=== PATIENT | female | born 1965 | race Caucasian/White ===

== ENCOUNTER 2018-03-24 11:33 | Inpatient (IN) | payer MEDICAID, OTHER, SELFPAY ==
[2018-03-24 15:01] LABS: Absolute Lymphocytes (CBC) 2.4 K/uL (0.7-4.9); Absolute Monocytes 0.9 K/uL (0.1-1.3); Absolute Neutrophil 7.2 K/uL (1.8-8.0); Basophils % 0.6 % (0-1.3); Eosinophils % 3.7 % (0-4.4); Hematocrit 38.8 % (36.0-45.0); Lymphocytes % 21.6 % (15.3-44.8); MCH 29.8 pg (27.0-35.0); MCV 87.7 fL (80-100); MPV 9.7 fL (7.6-11.3); RBC Red Blood Cell Count 4.43 M/uL (3.86-4.86)
[2018-03-24] MEDS ORDERED: Levofloxacin 750mg IV 750 MG/150 ML BAG IV ONE (15:05)
[2018-03-24] MEDS ORDERED: FENTANYL CITR 100 MCG/2 ML ONE (15:05)
[2018-03-24] MEDS ORDERED: NA CHLORIDE 0.9% 1,000 ML ONE (15:05)
[2018-03-24] MEDS ORDERED: METRONIDAZOLE 500mg IVPB 500 MG/100 ML BAG IV ONE (15:05)
[2018-03-24 15:07] LABS: Protime INR 1.07
[2018-03-24] MEDS ORDERED: ONDANSETRON 4 MG/2 ML VIAL ONE ×2 (15:07→16:44)
[2018-03-24 15:14] LABS: Potassium 3.6 mEq/L (3.6-5.0)
--- NOTE | 2018-03-24 15:19 | RAD REPORT ---
EXAM DESCRIPTION: RAD - Chest Single View - 03/24/2018 3:08 pm CLINICAL HISTORY: Chest pain. COMPARISON: 11/24/2017. FINDINGS: Portable technique limits examination quality. The lungs are grossly clear. The heart is normal in size. No displaced fractures. IMPRESSION: No acute intrathoracic process suspected.
[2018-03-24 15:20] LABS: Albumin 3.8 g/dL (3.2-5.5); Bilirubin Direct 0.1 mg/dL (0-0.2); Bilirubin Total 0.7 mg/dL (0.3-1.2); Magnesium 1.8 mg/dL (1.8-2.5); Protein, Total 7.7 g/dL (6.0-8.3)
[2018-03-24 15:23] LABS: CKMB Creatine Kinase MB 1.5 ng/ml (0.3-4.0)
[2018-03-24 16:08] LABS: Urine Blood NEGATIVE (NEG); Urine Glucose NEGATIVE (NEG); Urine Protein NEGATIVE (NEG); Urine pH 6.5 (5.0-7.0)
--- NOTE | 2018-03-24 16:54 | RAD REPORT ---
EXAM DESCRIPTION: CT - Abdomen Pelvis Wo Contrast - 03/24/2018 4:37 pm CLINICAL HISTORY: Groin pain, abdominal pain; patient history of "3 knots" in her genitals they hurt so badly and are oozing yellow drainage radiates up the abdomen COMPARISON: CT study March 2014 TECHNIQUE: Axial [address] imaging of the abdomen and pelvis was performed without IV contrast. No IV contrast was given because of allergy, abnormal renal function, patient refusal or physician re quest. Oral contrast was given. All CT scans are performed using dose optimization technique as appropriate and may include automated exposure control or mA/KV adjustment according to patient size. FINDINGS: No suspicious findings in the lung bases. The liver, spleen and pancreas show no suspicious findings on non-contrast imaging. Cholecystectomy c lips are present. No biliary tree dilatation. No hydronephrosis or suspicious renal mass. No significant adrenal finding. Isodense renal masses an d pyelonephritis cannot be excluded in the absence of IV contrast. Partially filled urinary bladder s hows no suspicious finding. Uterus is absent. Ovaries are unremarkable. No gastric dilatation or gastric wall thickening. Oral contrast has reached the distal small bowel. N o appendicitis findings. From cecum through the descending colon there is no acute finding. In the mi dportion of the tortuous sigmoid colon there is a 4 centimeter segment of wall thickening with edema and inflammatory stranding in the adjacent fat. Patient has a mild diverticulosis pattern of the sigm oid colon. No abscess. No distant free air. Punctate air densities adjacent to the colon are probably within diverticulum. No free air, free fluid or pneumatosis. No other area of peritoneal or retroper itoneal inflammatory stranding. No hernia, mass or bulky lymphadenopathy. In the fatty tissues left-side mons pubis there is edema and stranding just below the skin surface. N o air in the soft tissues. No inflammatory stranding into the perineum or extending superiorly into t he pelvic floor. There are few nonspecific bilateral inguinal lymph nodes. No suspicious bony findings. IMPRESSION: Mild acute sigmoid diverticulitis. No abscess or other complication. Mild inflammatory changes are present in the fatty tissues left-side mons pubis. No abscess or air in the soft tissues. There is no posterior extension into the perineum and no extension superiorly into the groin or pelvic floor. Full assessment is limited is the absence of IV contrast.
--- NOTE | 2018-03-24 17:11 | EDPHYS ---
Physician Documentation [facility] Name: Sonia Miller Age: 52 yrs Sex: Female : 1965 Arrival Date: 03/24/2018 Time: 11:34 Bed 27 Private MD: Mike Blackburn HPI: 03/24 14:15 This 52 yrs old Female presents to ER via Wheelchair with complaints of jose Abdominal Pain, KNOTS IN VAGINAL AREA. 14:15 The patient presents with an abscess of the left labia majora. Description: localized, jose draining, erythematous. Onset: The symptoms/episode began/occurred 3 day(s) ago. Possible cause(s): unknown. The patient presents with abdominal pain in the lower abdomen, right lower quadrant, in the left lower quadrant. Onset: The symptoms/episode began/occurred 3 day(s) ago. Modifying factors: the symptoms are alleviated by nothing, the symptoms are aggravated by nothing. 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 - Social history:: Smoking status: Patient/guardian denies using tobacco, Patient/guardian denies using alcohol, street drugs. - Family history:: not pertinent. ROS: 14:15 Constitutional: Negative for fever, chills, and weight loss, Eyes: Negative for injury, jose pain, redness, and discharge, ENT: Negative for injury, pain, and discharge, Neck: Negative for injury, pain, and swelling, Cardiovascular: Negative for chest pain, palpitations, and edema, Respiratory: Negative for shortness of breath, cough, wheezing, and pleuritic chest pain, Back: Negative for injury and pain, MS/Extremity: Negative for injury and deformity, Skin: Negative for injury, rash, and discoloration, Neuro: Negative for headache, weakness, numbness, tingling, and seizure, Psych: Negative for depression, anxiety, suicide ideation, homicidal ideation, and hallucinations, Allergy/Immunology: Negative for hives, rash, and allergies, Endocrine: Negative for neck swelling, polydipsia, polyuria, polyphagia, and marked weight changes, Hematologic/Lymphatic: Negative for swollen nodes, abnormal bleeding, and unusual bruising. 14:15 Abdomen/GI: Positive for abdominal pain, of the right lower quadrant and left lower quadrant. 14:15 Skin: Positive for abscess, cellulitis, swelling, of the groin. Exam: 14:15 Constitutional: This is a well developed, well nourished patient who is awake, alert, jose and in no acute distress. Head/Face: Normocephalic, atraumatic. Eyes: Pupils equal round and reactive to light, extra-ocular motions intact. Lids and lashes normal. Conjunctiva and sclera are non-icteric and not injected. Cornea within normal limits. Periorbital areas with no swelling, redness, or edema. ENT: Nares patent. No nasal discharge, no septal abnormalities noted. Tympanic membranes are normal and external auditory canals are clear. Oropharynx with no redness, swelling, or masses, exudates, or evidence of obstruction, uvula midline. Mucous membranes moist. Neck: Trachea midline, no thyromegaly or masses palpated, and no cervical lymphadenopathy. Supple, full range of motion without nuchal rigidity, or vertebral point tenderness. No Meningismus. Chest/axilla: Normal chest wall appearance and motion. Nontender with no deformity. No lesions are appreciated. Cardiovascular: Regular rate and rhythm with a normal S1 and S2. No gallops, murmurs, or rubs. Normal PMI, no JVD. No pulse deficits. Respiratory: Lungs have equal breath sounds bilaterally, clear to auscultation and percussion. No rales, rhonchi or wheezes noted. No increased work of breathing, no retractions or nasal flaring. Back: No spinal tenderness. No costovertebral tenderness. Full range of motion. Skin: Warm, dry with normal turgor. Normal color with no rashes, no lesions, and no evidence of cellulitis. MS/ Extremity: Pulses equal, no cyanosis. Neurovascular intact. Full, normal range of motion. Neuro: Awake and alert, GCS 15, oriented to person, place, time, and situation. Cranial nerves II-XII grossly intact. Motor strength 5/5 in all extremities. Sensory grossly intact. Cerebellar exam normal. Normal gait. 14:15 Abdomen/GI: Inspection: abdomen appears normal, Bowel sounds: normal, Palpation: mild abdominal tenderness, moderate abdominal tenderness, in the right lower quadrant and left lower quadrant. Vital Signs: 11:43 BP 164 / 87; Pulse 77; Resp 22; Temp 98.8; Pulse Ox 99% on R/A; Weight 106.59 kg; ch Height 5 ft. 10 in. (177.80 cm); Pain 10/10; 13:30 BP 139 / 92; Pulse 62; Resp 15; Pulse Ox 100% on R/A; kr2 14:30 BP 132 / 74; Pulse 62; Resp 17; Pulse Ox 99% on R/A; kr2 16:00 BP 142 / 81; Pulse 60; Resp 17; Pulse Ox 99% on R/A; kr2 16:56 BP 140 / 76; Pulse 64; Resp 16; Pulse Ox 100% on R/A; kr2 18:30 BP 145 / 78; Pulse 66; Resp 17; Pulse Ox 100% on R/A; kr2 19:34 BP 150 / 82; Pulse 74; Resp 16; Pulse Ox 100% on R/A; kr2 20:39 BP 157 / 85; Pulse 78; Resp 16; Pulse Ox 100% on R/A; kr2 11:43 Body Mass Index 33.72 (106.59 kg, 177.80 cm) MDM: 13:34 Patient medically screened. [facility] 14:31 Data reviewed: vital signs, nurses notes, lab test result(s), EKG, radiologic studies, [facility] CT scan, plain films. 03/24 13:35 Order name: Urine Culture [facility] 03/24 14:15 Order name: Basic Metabolic Panel; Complete Time: 15:26 [facility] 03/24 14:15 Order name: BNP; Complete Time: 15:26 [facility] 03/24 14:15 Order name: CBC with Diff; Complete Time: 15:18 [facility] 03/24 14:15 Order name: Ckmb; Complete Time: 15:26 [facility] 03/24 14:15 Order name: CPK; Complete Time: 15:26 jose 03/24 14:15 Order name: LFT's; Complete Time: 15:26 [facility] 03/24 14:15 Order name: Magnesium; Complete Time: 15:26 [facility] 03/24 14:15 Order name: PT-INR; Complete Time: 15:18 [facility] 03/24 14:15 Order name: Ptt, Activated; Complete Time: 15:18 [facility] 03/24 14:15 Order name: Troponin (emerg Dept Use Only); Complete Time: 15:26 [facility] 03/24 14:15 Order name: XRAY Chest (1 view); Complete Time: 15:26 [facility] 03/24 14:15 Order name: Blood Culture Adult (2) [facility] 03/24 15:39 Order name: Urine Dipstick--Ancillary (enter results); Complete Time: 16:38 03/24 13:35 Order name: Urine Dipstick-Ancillary (obtain specimen); Complete Time: 16: [facility] 03/24 13:35 Order name: Urine Test (obtain specimen); Complete Time: 16:01 [facility] 03/24 14:15 Order name: EKG; Complete Time: 14:15 [facility] 03/24 14:15 Order name: Cardiac monitoring; Complete Time: 16:00 [facility] 03/24 14:15 Order name: EKG - Nurse/Tech; Complete Time: 15:33 [facility] 03/24 14:15 Order name: IV Saline Lock; Complete Time: 15:33 [facility] 03/24 14:15 Order name: Labs collected and sent; Complete Time: 16:00 [facility] 03/24 14:15 Order name: CT Abd/Pelvis - Without Cont; Complete Time: 17:05 [facility] 03/24 17:18 Order name: CONS Physician Consult [facility] 03/24 14:15 Order name: O2 Per Protocol; Complete Time: 16:01 [facility] 03/24 14:15 Order name: O2 Sat Monitoring; Complete Time: 16:01 [facility] Administered Medications: 15:21 Drug: NS 0.9% 1000 ml Route: IV; Rate: 1 bolus; Site: left forearm; kr2 17:30 Follow up: Response: No adverse reaction; IV Status: Completed infusion kr2 15:21 Drug: fentaNYL (PF) 50 mcg Route: IVP; Site: left forearm; kr2 16:00 Follow up: Response: No adverse reaction; Pain is decreased kr2 15:21 Drug: Zofran 4 mg Route: IVP; Site: left forearm; kr2 16:00 Follow up: Response: No adverse reaction kr2 15:25 Drug: Flagyl 500 mg Volume: 100 ml; Route: IVPB; Rate: 200 ml/hr; Infused Over: 30 kr2 mins; Site: left forearm; 15:59 Follow up: Response: No adverse reaction; IV Status: Completed infusion kr2 16:00 Drug: levofloxacin 750 mg Volume: 150 ml; Route: IVPB; Infused Over: 90 mins; Site: kr2 left forearm; 17:30 Follow up: Response: No adverse reaction; IV Status: Completed infusion kr2 18:30 Drug: Zofran 4 mg Route: IVP; Site: left forearm; kr2 18:36 Follow up: Response: No adverse reaction; Nausea is decreased kr2 18:30 Drug: vancoMYCIN 1 grams Route: IVPB; Infused Over: 2 hrs; Site: left forearm; kr2 20:39 Follow up: Response: No adverse reaction; IV Status: Completed infusion kr2 Disposition: 03/24/18 17:10 Hospitalization ordered by Tanner Miles for Inpatient Admission. Preliminary diagnosis are Abdominal tenderness, Cutaneous abscess of other sites - lrft labia, Diverticulitis of small intestine without perforation or abscess without bleeding - sigmoid. - Bed requested for Telemetry/MedSurg (Inpatient). - Status is Inpatient Admission. kr2 - Condition is Stable. - Problem is new. - Symptoms have improved. UTI on Admission? No Signatures: Dispatcher [employer] Tianna Chapa, Ivon Pierre RN, ch, RN RN dw Anderson, Corey, MD MD cha Reaves, Karey, RN RN kr2
--- NOTE | 2018-03-24 17:11 | ER ---
Nurse's Notes [facility] Name: Sonia Miller Age: 52 yrs Sex: Female : 1965 Arrival Date: 03/24/2018 Time: 11:34 Bed 27 Private MD: Diagnosis: Abdominal tenderness;Cutaneous abscess of other sites-lrft labia;Diverticulitis of small intestine without perforation or abscess without bleeding-sigmoid Presentation: 03/24 11:40 Presenting complaint: Patient states: I have three knots down by my genitals, they hurt ch so badly, and are oozing yellow drainage. the pain radiates up into my abdomen. Transition of care: patient was not received from another setting of care. Onset of symptoms was March 10, 2018. Initial Sepsis Screen: Does the patient meet any 2 criteria? No. Patient's initial sepsis screen is negative. Does the patient have a suspected source of infection? No. Patient's initial sepsis screen is negative. Care prior to arrival: None. 11:40 Method Of Arrival: Wheelchair 11:40 Acuity: ROSI 3 ch Triage Assessment: 11:43 General: Appears in no apparent distress. uncomfortable, Behavior is calm, cooperative, ch appropriate for age. Pain: Complains of pain in right lower quadrant, left lower quadrant and pelvis Pain currently is 10 out of 10 on a pain scale. GI: Reports lower abdominal pain. 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 - Social history:: Smoking status: Patient/guardian denies using tobacco, Patient/guardian denies using alcohol, street drugs. - Family history:: not pertinent. Screenin:45 Abuse screen: Denies threats or abuse. Denies injuries from another. Nutritional kr2 screening: No deficits noted. Tuberculosis screening: No symptoms or risk factors identified. Fall Risk None identified. Assessment: 13:45 General: Appears in no apparent distress. uncomfortable, obese, well groomed, well kr2 developed, well nourished, Behavior is calm, cooperative, appropriate for age. Pain: Complains of pain in pelvis Pain currently is 10 out of 10 on a pain scale. Quality of pain is described as aching, tender, Pain began 4 days ago Is continuous, Alleviated by nothing. Aggravated by increased activity. Neuro: Level of Consciousness is awake, alert, obeys commands, Oriented to person, place, time, situation. Cardiovascular: Capillary refill < 3 seconds in bilateral fingers Patient's skin is warm and dry. Respiratory: Airway is patent Respiratory effort is even, unlabored, Respiratory pattern is regular, symmetrical. GI: Bowel sounds present X 4 quads. Abd is soft X 4 quads Abdomen is tender to palpation in suprapubic area, right lower quadrant and left lower quadrant. : Reports difficulty urinating. EENT: Nares are clear bilaterally Oral mucosa is moist. Derm: Skin is intact, is healthy with good turgor, Skin is pink, warm \T\ dry. Musculoskeletal: Circulation, motion, and sensation intact. 15:30 Reassessment: Patient appears in no apparent distress at this time. Patient and/or kr2 family updated on plan of care and expected duration. Pain level reassessed. Patient is alert, oriented x 3, equal unlabored respirations, skin warm/dry/pink. 16:00 Reassessment: Patient appears in no apparent distress at this time. Patient and/or kr2 family updated on plan of care and expected duration. Pain level reassessed. Patient is alert, oriented x 3, equal unlabored respirations, skin warm/dry/pink. Patient states symptoms have improved. 16:57 Reassessment: Patient appears in no apparent distress at this time. Patient and/or kr2 family updated on plan of care and expected duration. Pain level reassessed. Patient is alert, oriented x 3, equal unlabored respirations, skin warm/dry/pink. Patient states symptoms have improved. 18:30 Reassessment: Patient appears in no apparent distress at this time. Patient and/or kr2 family updated on plan of care and expected duration. Pain level reassessed. Patient is alert, oriented x 3, equal unlabored respirations, skin warm/dry/pink. 19:36 Reassessment: Patient appears in no apparent distress at this time. Patient and/or kr2 family updated on plan of care and expected duration. Pain level reassessed. Patient is alert, oriented x 3, equal unlabored respirations, skin warm/dry/pink. Patient states feeling better. Patient states symptoms have improved. Vital Signs: 11:43 BP 164 / 87; Pulse 77; Resp 22; Temp 98.8; Pulse Ox 99% on R/A; Weight 106.59 kg; Height 5 ft. 10 in. (177.80 cm); Pain 10/10; 13:30 BP 139 / 92; Pulse 62; Resp 15; Pulse Ox 100% on R/A; kr2 14:30 BP 132 / 74; Pulse 62; Resp 17; Pulse Ox 99% on R/A; kr2 16:00 BP 142 / 81; Pulse 60; Resp 17; Pulse Ox 99% on R/A; kr2 16:56 BP 140 / 76; Pulse 64; Resp 16; Pulse Ox 100% on R/A; kr2 18:30 BP 145 / 78; Pulse 66; Resp 17; Pulse Ox 100% on R/A; kr2 19:34 BP 150 / 82; Pulse 74; Resp 16; Pulse Ox 100% on R/A; kr2 20:39 BP 157 / 85; Pulse 78; Resp 16; Pulse Ox 100% on R/A; kr2 11:43 Body Mass Index 33.72 (106.59 kg, 177.80 cm) ED Course: 11:34 Patient arrived in ED. sb2 11:41 Triage completed. 11:43 Arm band placed on left wrist. Patient placed in waiting room. 13:34 Mike Rios MD is Attending Physician. [facility] 13:41 Bethany Hudson, EMERALD is Primary Nurse. kr2 13:45 Patient has correct armband on for positive identification. Placed in gown. Bed in low kr2 position. Call light in reach. Side rails up X2. genetics nurse on. Pulse ox on. NIBP on. Door closed. Noise minimized. Warm blanket given. Head of bed elevated. 14:41 X-ray completed. Portable x-ray completed in exam room. Patient tolerated procedure sw well. 14:45 Inserted saline lock: 22 gauge in left forearm, using aseptic technique. Blood kr2 collected. IV with fluids not infusing freely, without good blood return, IV discontinued, intact, bleeding controlled, No redness/swelling at site. Pressure dressing applied. 15:00 Inserted saline lock: 22 gauge in left forearm, using aseptic technique. ,using aseptic kr2 technique. performed by ASAF Rosa Blood collected. 15:08 XRAY Chest (1 view) In Process Unspecified. EDMS 15:29 EKG done, by farm equipment technician. reviewed by Mike Rios MD. dt2 16:[address] via wheelchair. kw1 16:14 CT completed. Patient tolerated procedure well. Patient moved back from CT. kw1 16:15 CT Abd/Pelvis - Without Cont In Process Unspecified. EDMS 17:09 Tanner Miles MD is Hospitalizing Provider. jose 20:40 No provider procedures requiring assistance completed. Patient admitted, IV remains in kr2 place. Administered Medications: 15:21 Drug: NS 0.9% 1000 ml Route: IV; Rate: 1 bolus; Site: left forearm; kr2 17:30 Follow up: Response: No adverse reaction; IV Status: Completed infusion kr2 15:21 Drug: fentaNYL (PF) 50 mcg Route: IVP; Site: left forearm; kr2 16:00 Follow up: Response: No adverse reaction; Pain is decreased kr2 15:21 Drug: Zofran 4 mg Route: IVP; Site: left forearm; kr2 16:00 Follow up: Response: No adverse reaction kr2 15:25 Drug: Flagyl 500 mg Volume: 100 ml; Route: IVPB; Rate: 200 ml/hr; Infused Over: 30 kr2 mins; Site: left forearm; 15:59 Follow up: Response: No adverse reaction; IV Status: Completed infusion kr2 16:00 Drug: levofloxacin 750 mg Volume: 150 ml; Route: IVPB; Infused Over: 90 mins; Site: kr2 left forearm; 17:30 Follow up: Response: No adverse reaction; IV Status: Completed infusion kr2 18:30 Drug: Zofran 4 mg Route: IVP; Site: left forearm; kr2 18:36 Follow up: Response: No adverse reaction; Nausea is decreased kr2 18:30 Drug: vancoMYCIN 1 grams Route: IVPB; Infused Over: 2 hrs; Site: left forearm; kr2 20:39 Follow up: Response: No adverse reaction; IV Status: Completed infusion kr2 Outcome: 17:10 Decision to Hospitalize by Provider. jose 20:40 Admitted to Med/surg accompanied by tech, via wheelchair, room 406, with chart, Report kr2 called to Audra 20:40 Condition: stable 20:40 Instructed on the need for admit, Demonstrated understanding of instructions. 20:41 Patient left the ED. kr2 Signatures: Dispatcher [employer] EDMS Tianna Szymanski, RN RN Mike Foote MD MD cha Warren, Shannon sw Reaves, Karey, RN RN kr2 Inge Bello1 Justina Esquivel2 Cat Matamoros2
[2018-03-24] MEDS ORDERED: VANCOMYCIN/NS 1 gm 1 GM/250 ML BAG ONE (18:27)
[2018-03-24] MEDS ORDERED: PANTOPRAZOLE 40 MG INJ ONE (20:12)
[2018-03-24] MEDS ORDERED: ACETAMINOPHEN 650MG/RECT SUPP RECT PRN (20:29)
[2018-03-24] MEDS: D5 0.45 NS 1,000 ML IV SCH (22:18)
--- NOTE | 2018-03-24 22:36 | EKG ---
Test Date: 2018-03-24 Test Time: 15:19:09 Coding Machine Operator: DASH MEASUREMENT RESULTS: Intervals: Rate: 55 MO: 168 QRSD: 86 QT: 422 QTc: 403 [place]: P: 47 MO: 168 QRS: 4 T: 26 INTERPRETIVE STATEMENTS: Sinus bradycardia Otherwise normal ECG Compared to ECG 11/24/2017 17:36:23 No significant changes Electronically Signed On 03-24-18 22:35:56 CDT by Gianfranco Lewis
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
[2018-03-24 23:00] VITALS: BMI 35.2
[2018-03-24] MEDS: METRONIDAZOLE 500mg IVPB 500 MG/100 ML BAG IV SCH (23:00)
[2018-03-25] MEDS ORDERED: MAGNESIUM SULFATE 1 gm IVPB 1 GM/100 ML BAG IV ONE (02:38)
[2018-03-25] MEDS ORDERED: POTASSIUM 25 MEQ EFFERV TAB PO ONE (02:56)
[2018-03-25] MEDS ORDERED: ACETAMINOPHEN 500 MG TAB ONE (03:50)
[2018-03-25 05:32] LABS: Absolute Lymphocytes (CBC) 2.3 K/uL (0.7-4.9); Absolute Neutrophil 6.2 K/uL (1.8-8.0); Basophils % 0.6 % (0-1.3); Eosinophils % 3.2 % (0-4.4); Hematocrit 36.1 % (36.0-45.0); MCH 29.4 pg (27.0-35.0); MCV 87.7 fL (80-100); MPV 9.6 fL (7.6-11.3); Monocytes % 10.4 % (3.3-12.3); RBC Red Blood Cell Count 4.12 M/uL (3.86-4.86)
[2018-03-25 05:33] LABS: Albumin 3.3 g/dL (3.2-5.5); Bilirubin Total 0.8 mg/dL (0.3-1.2); Potassium 3.8 mEq/L (3.6-5.0); Protein, Total 6.8 g/dL (6.0-8.3)
[2018-03-25] MEDS ORDERED: ACETAMINOPHEN 500 MG TAB PO PRN (05:42)
--- NOTE | 2018-03-25 05:48 | P.HP ---
Certification for Inpatient Patient admitted to: Inpatient With expected LOS: >2 Midnights Practitioner: I am a practitioner with admitting privileges, knowledge of patient current condition, hospital course, and medical plan of care. Services: Services provided to patient in accordance with Admission requirements found in Title 42 Section 412.3 of the Code of Federal Regulations Patient History Date of Service: 03/24/18 Reason for admission: diverticulits History of Present Illness: Ms Miller is a 52 years old woman with history of HTN, GERD and seizures, who start about 2 weeks ago with on and off abdominal pain. The pain was initially diffuse, the localized on LLQ. She has had subjective fever this time. She had loose stools, nausea and lately vomiting. She denied any blood on stools. She has never had this symptoms before. She is also complaining of several knots in her genitalia area. One of them is in her labia majora and is having yellowish secretion coming out. Work up in ER is remarkable for normal WBC count, CT abd/ pelvis report mild sigmoid diverticulitis without complications. 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 moist/pink, EOMI, Sclerae nonicteric Neck: Supple, 2+ carotid pulse no bruit, No LAD, Without JVD or thyroid abnormality Respiratory: Clear to auscultation bilaterally, Normal air movement Cardiovascular: Regular rate/rhythm, Normal S1 S2 Gastrointestinal: Non-distended, Tenderness (LLQ) Musculoskeletal: No tenderness Integumentary: No rashes Neurological: Normal speech, Normal strength at 5/5 x4 extr, Normal tone, Normal affect Lymphatics: No axilla or inguinal lymphadenopathy - Studies Laboratory Data (last 24 hrs) 03/24/18 14:45: PT 12.6 H, INR 1.07, APTT 27.6 03/24/18 14:45: WBC 10.9, Hgb 13.2, Hct 38.8, Plt Count 288 03/24/18 14:45: B-Natriuretic Peptide 20 03/24/18 14:45: Sodium 138, Potassium 3.6, BUN 17, Creatinine 0.73, Glucose 92, Magnesium 1.8, Total Bilirubin 0.7, AST 21, ALT 19, Alkaline Phosphatase 95 Female Exam - Female Pelvic Vagina: Lesions (ulcerative open lesion on her left labia majora), Other (two more lesion without secretions on pubic area) Assessment and Plan - Problems (Diagnosis) (1) Acute diverticulitis Current Visit: Yes Status: Acute (2) HTN (hypertension) Current Visit: Yes Status: Acute Qualifiers: Hypertension type: essential hypertension Qualified Code(s): I10 - Essential (primary) hypertension (3) Seizure disorder Current Visit: Yes Status: Acute (4) GERD (gastroesophageal reflux disease) Current Visit: Yes Status: Acute Qualifiers: Esophagitis presence: without esophagitis Qualified Code(s): K21.9 - Gastro -esophageal reflux disease without esophagitis (5) Superficial ulcerative lesion Current Visit: Yes Status: Acute - Plan The patient will be admitted to the hospital due to acute diverticulitis. No abscess formation seen on CT scan. She has been started on IV antibiotics, Dr Trinh consulted. She is also on empiric antibiotics for her genitalia ulcerative lesion. F/U surgery team. AB INITIO ETL DEVELOPER consulted. - Advance Directives Does patient have a Living Will: No Does patient have a Durable POA for Healthcare: No - Code Status/Comfort Care Code Status Assessed: Yes Code Status: Full Code
[2018-03-25] MEDS: METRONIDAZOLE 500mg IVPB 500 MG/100 ML BAG IV SCH ×2 (06:11→15:00)
[2018-03-25] MEDS: D5 0.45 NS 1,000 ML IV SCH ×2 (06:29→18:14)
[2018-03-25] MEDS ORDERED: TRAMADOL HCL 50 MG TAB PO ONE (07:35)
[2018-03-25] MEDS: LOSARTAN POTASSIUM 50 MG TABLET PO SCH (10:13)
[2018-03-25] MEDS: RANITIDINE 150 MG TABLET PO SCH (10:14)
[2018-03-25] MEDS: ONDANSETRON 4 MG/2 ML VIAL IV PRN ×3 (11:24→18:13)
[2018-03-25 11:42] LABS: A1c Component 0.45 mg/dL; Hemoglobin A1c 5.6 % (4-6.0)
--- NOTE | 2018-03-25 14:53 | P.CNS ---
Date of Consult: 03/25/18 Ms Miller is a 52 y/o s/p hysterectomy about 10 years ago due to heavy menses who presented to the ED with abdominal pain. INDUSTRIAL ECOLOGY TECHNICIAN has been consulted due to the patient also having some vulvar issues that began 4-5 days ago. She has been feeling vaginal itching and so she started to shave the area but to do so she used her 's clippers that he uses on his head and face. She states that since then she began to feel a sore in the area and it began to secrete fluid. GYNH: vaginal x 3; h/o irregular heavy menses prior to hysterectomy; has not seen a INDUSTRIAL ECOLOGY TECHNICIAN in about 4 years. Has not had a mammogram recently either. States she doesn't have insurance as the reason why. 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 No distress ABD: soft, ND External genitalia: on left labia at 1 o'clock and 3 o'clock there are two very small ulcerations - not bleeding. not herpetic. likely due to follicular irritation. Vaginal: lack of normal rugae. A: vulvar abscess P: treat conservatively - discussed proper hygiene and follow up with seasonal recruiter. Discharge home with rx clindamycin 450mg PO 3x/day for 10 day.
[2018-03-25] MEDS ORDERED: METOCLOPRAMIDE 10 MG/2mL INJ IV SCH (20:00)
--- NOTE | 2018-03-25 20:01 | P.PN ---
Date of Service: 03/25/18 S.: Patient states her abdominal pain appears to be much improved. However is having horrible nausea and some vomiting. Bringing up minimum amount at this time. Not green common. It appears to be mostly gastric and saliva. O.: Abdomen is soft, nontender in marked comparison to last night. A: Clinically patient appears much improved since yesterday as far as her abdominal pain and tenderness is concerned. Does have nausea at the moment is being addressed. P: Continue current therapy.
[2018-03-25] MEDS ORDERED: DIAZEPAM 5 MG TABLET PO ONE (20:07)
--- NOTE | 2018-03-25 21:29 | PN ---
Date of Progress Note: 03/25/2018 Subjective: The patient seen and examined. Chart reviewed and case discussed with RN and surgeon. The patient is still having significant amount of nausea and vomiting. She was seen by General surge ry and GIS CONSULTANT today. Treatment plan explained. All questions answered. at the bedside. Review of Systems: Negative except as above. Medications: Reviewed. Physical Examination: Vital Signs: Temperature 97.8, heart rate 66, blood pressure 156/67, respirations 18, and O2 96% on room air. General: Awake, alert, and oriented x3, in some mild distress. Somewhat ill-appearing obese female. BMI 35. CV: S1, S2. Regular rate and rhythm. Peripheral pulses present bilaterally. Respiratory: Clear to auscultation bilaterally. No wheezing. No stridor. No use of accessory musc les. Gastrointestinal: Abdomen is mildly tender, soft, nondistended. Hypoactive bowel sounds. No guardi ng or rigidity. Extremities: No clubbing, cyanosis, or edema. No calf tenderness. Neuro: Cranial nerves 2 through 12 intact grossly. No focal neurological deficit. Speech is normal . Laboratory Data: Sodium 138, potassium 3.8, chloride 106, CO2 of 27, BUN 10, creatinine 0.73, and gl ucose 106. Hemoglobin A1c 5.6. Calcium 8.7. WBC 9.8, H and H 12.1 and 36.1, platelets 274. Blood cultures no growth to date. Urine culture 100,000 colony-forming units of mixed cecilio. Assessment And Plan: A 52-year-old female with: 1.Acute diverticulitis. We will continue with IV antibiotics. Clear liquid diet. 2.Intractable nausea, vomiting. We will continue with antiemetics p.r.n. The patient is allergic t o promethazine. 3.Essential hypertension, stable. We will continue to monitor blood pressure and p.r.n. medications if elevated. 4.Seizure disorder. Seizure precautions. 5.Gastroesophageal reflux disease without esophagitis. Continue PPI. 6.Labial abscess. Appreciate VENDOR QUALITY SUPERVISOR input. Plan as above. TOMMY Voice ID: [id number] Report ID: [id number]
[2018-03-25] MEDS: CIPROFLOXACIN 400mg IV 400 MG/200 ML BAG IV SCH (21:51)
[2018-03-26] MEDS: METRONIDAZOLE 500mg IVPB 500 MG/100 ML BAG IV SCH ×2 (00:32→10:39)
[2018-03-26] MEDS: D5 0.45 NS 1,000 ML IV SCH (02:29)
[2018-03-26] MEDS: CIPROFLOXACIN 400mg IV 400 MG/200 ML BAG IV SCH (03:53)
[2018-03-26 06:03] LABS: Magnesium 1.8 mg/dL (1.8-2.5); Potassium 3.3 mEq/L (3.6-5.0)
[2018-03-26] MEDS ORDERED: MAGNESIUM SULFATE 1 gm IVPB 1 GM/100 ML BAG IV ONE (06:39)
[2018-03-26] MEDS ORDERED: POTASSIUM CL SA 10 MEQ TAB PO ONE (06:40)
[2018-03-26 10:18] VITALS: O2SAT 97
[2018-03-26] MEDS: LOSARTAN POTASSIUM 50 MG TABLET PO SCH (10:43)
[2018-03-26] MEDS: RANITIDINE 150 MG TABLET PO SCH (10:44)
[2018-03-26 12:54] VITALS: BP 169/79; TEMP 98
--- NOTE | 2018-03-27 11:41 | DS ---
Date of Discharge: 03/26/2018 Consultants: Dr. Trinh with General surgery and Dr. Mcguire with AIRCRAFT MAGNETO MECHANIC. Procedures: None. Admitting Diagnoses: 1.Acute diverticulitis. 2.Essential hypertension. 3.Seizure disorder. 4.Gastroesophageal reflux disease without esophagitis. 5.Labial abscess. Discharge Diagnoses: 1.Acute diverticulitis, improved. 2.Intractable nausea and vomiting, resolved. 3.Essential hypertension, stable. 4.Seizure disorder, stable. 5.Gastroesophageal reflux disease without esophagitis. Continue PPI. 6.Labial abscess. Continue antibiotics. 7.Obesity, body mass index 35.2. Hospital Course: The patient is a 52-year-old female, who came in with abdominal pain. She also had some diarrhea. CT scan showed sigmoid diverticulitis. The patient was started on IV fluids and eagle ar liquid diet and IV antibiotics. The patient improved with treatment. She also had some labial le sions. AIRCRAFT MAGNETO MECHANIC was consulted and did not have any intervention. Dr. Mcguire recommended clindamycin. The patient was also seen by Dr. Trinh, General Surgery and did not plan on any surgical interventi on. The patient's symptoms improved. Her blood cultures were negative to date. Urine culture showe d mixed cecilio. She did have some electrolyte abnormalities, which were corrected. White count remai serina normal. The patient was then feeling better, able to ambulate, tolerating diet, and no longer cody ving any nausea vomiting. Diarrhea was subsiding. The patient was then cleared for discharge from c onsultant's standpoint and was sent home in a stable condition. Activity: As tolerated. Medications: As per medication reconciliation list. Followup: Follow up with primary care physician in 2-3 days. Follow up with Dr. Mcguire, AIRCRAFT MAGNETO MECHANIC in 1 week. Return to ER for worsening condition. Diet: Heart healthy, low calorie diet. Activity: As tolerated. Total time spent discharging the patient was 37 minutes. Physical Examination: General: Awake, alert, oriented, in no acute distress. Obese, BMI 35. CV: S1, S2. No murmurs. Respiratory: Clear to auscultation bilaterally. No wheezing. Gastrointestinal: Abdomen is soft, nontender, nondistended. Positive bowel sounds. Extremities: No clubbing, cyanosis, edema. Neurologic: Nonfocal. SA/MODL Voice ID: [id number] Report ID: [id number]
== END 2018-03-26 14:37 | disposition home or self-care (01) | DRG 392 ==
LOC: ER 11:33 → ERHOLD 17:14 → 4TH 20:16
PROVIDERS: ADMIT Family Medicine; ATTEND Internal Medicine
DX: K57.92 Diverticulitis of intestine, part unspecified, without perforation or abscess without bleeding (principal); N76.4 Abscess of vulva; I10 Essential (primary) hypertension; G40.909 Epilepsy, unspecified, not intractable, without status epilepticus; K21.9 Gastro-esophageal reflux disease without esophagitis; E66.9 Obesity, unspecified; Z68.35 Body mass index [BMI] 35.0-35.9, adult; Z91.041 Radiographic dye allergy status
CPT/HCPCS: 36415; 71045; 74176; 80048; 80053; 80076; 81003; 82550; 82553; 83036; 83735; 83880; 84132; 84484; 85025; 85610; 85730; 87040; 87077; 87086; 87088; 87186; 93005; 94760; 96365; 96366; 96367; 96375; 99285; C9113; J0744; J2405; J2765; J3010; J3370; J3475; J7030

== ENCOUNTER 2018-05-02 08:56 | Observation (INO) | payer MEDICAID, OTHER, SELFPAY ==
[2018-05-02] MEDS ORDERED: FENTANYL CITR 100 MCG/2 ML ONE (09:39)
--- NOTE | 2018-05-02 09:46 | RAD REPORT ---
EXAM DESCRIPTION: CT - Stone Protocol - 05/02/2018 9:32 am CLINICAL HISTORY: Flank pain. Lower abdominal pain. COMPARISON: 03/24/2018 TECHNIQUE: Axial images were obtained without oral or IV contrast. Lack of contrast limits solid org an and vascular assessment. The [id number] spans the entirety of the system partially obscuring uppermost abdomen and lung bases. Coronal reformatted images were obtained and reviewed. All CT scans are performed using dose optimization technique as appropriate and may include automated exposure control or mA/KV adjustment according to patient size. FINDINGS: The lower lung pinedo are clear. Imaged portions of the liver and spleen show no suspicious findings on non-contrast imaging.Cholecyst ectomy clips. The pancreas and adrenal glands are normal.Small fat containing umbilical. Trace fluid is seen along the inferior right hepatic edge. No pathologic lymphadenopathy in the abdomen or pelvis . No urinary tract stones or obstructive uropathy. Inflammatory changes and wall thickening noted involving moderate segment of the sigmoid colon. Sever al diverticula are present in the region. Normal appendix noted.No free fluid, bowel obstruction or f ree air. No significant bony abnormality. IMPRESSION: Acute diverticulitis involving the sigmoid colon is noted without peridiverticular absce ss. The degree of diverticulitis appears stable since 03/24/2018.
[2018-05-02] MEDS ORDERED: ONDANSETRON 4 MG/2 ML VIAL ONE (10:03)
[2018-05-02 10:13] LABS: Urine Bacteria <20 /HPF (<20); Urine RBC <5 /HPF (NONE SEEN)
[2018-05-02 10:13] LABS: Urine Blood TRACE (NEG); Urine Glucose NEGATIVE (NEG); Urine Protein NEGATIVE (NEG); Urine pH 8.5 (5.0-7.0)
[2018-05-02 10:14] LABS: Urine Culture Reflex Order NOT NEEDED
[2018-05-02 10:20] LABS: Absolute Lymphocytes (CBC) 2.1 K/uL (0.7-4.9); Absolute Neutrophil 8.3 K/uL (1.8-8.0); Basophils % 0.6 % (0-1.3); Eosinophils % 2.4 % (0-4.4); Hematocrit 33.5 % (36.0-45.0); Lymphocytes % 18.1 % (15.3-44.8); MCH 29.7 pg (27.0-35.0); MCV 87.7 fL (80-100); MPV 9.7 fL (7.6-11.3); Monocytes % 8.3 % (3.3-12.3); RBC Red Blood Cell Count 3.83 M/uL (3.86-4.86)
[2018-05-02 10:26] LABS: Bicarbonate 26 mEq/L (21-31); Glucose Level 97 mg/dL (65-120); Lipase 16 U/L (22-51); Potassium 3.6 mEq/L (3.6-5.0); Sodium Level 137 mEq/L (135-145)
[2018-05-02 10:32] LABS: ALT/SGPT 19 IU/L (10-60); AST/SGOT 22 IU/L (10-42); Albumin 3.4 g/dL (3.2-5.5); Alkaline Phosphatase 96 IU/L (42-121); BUN Blood Urea Nitrogen 12 mg/dL (6-20); Bilirubin Direct 0.2 mg/dL (0-0.2); Bilirubin Total 0.6 mg/dL (0.3-1.2); Protein, Total 7.1 g/dL (6.0-8.3)
--- NOTE | 2018-05-02 10:38 | EDPHYS ---
Physician Documentation [facility] Name: Sonia Miller Age: 52 yrs Sex: Female : 1965 Arrival Date: 05/02/2018 Time: 08:59 Bed External Waiting Private MD: Mike Blackburn HPI: 05/02 10:32 This 52 yrs old Female presents to ER via EMS with complaints of Abdominal snw Pain. 10:32 The patient presents with abdominal pain in the lower abdomen. Onset: The snw symptoms/episode began/occurred suddenly, 3 day(s) ago, and became worse and became persistent. The symptoms do not radiate. Associated signs and symptoms: Pertinent positives: nausea, vaginal discharge. The symptoms are described as sharp. Severity of pain: At its worst the pain was moderate severe. The patient has experienced a previous episode, last month. The patient has not recently seen a physician. pt with hx of epilepsy, took topiramate but has not been taking for "a while" for financial reasons. CHIEF PORT DIRECTOR: 09:11 LMP N/A - Hysterectomy iw Historical: - Allergies: 09:08 Iodinated Contrast Media - IV Dye; iw 09:08 Phenergan (Vomiting, Respiratory distress); iw - Home Meds: 09:08 None [Active]; iw - PMHx: 09:08 GERD; Hypertension; Seizures; iw - PSHx: 09:08 Hysterectomy; tumor removed from R side of face; Tubal ligation; iw - Immunization history:: Adult Immunizations. - Social history:: Smoking status: Patient/guardian denies using tobacco. - Ebola Screening: : No symptoms or risks identified at this time. ROS: 10:34 Constitutional: Negative for fever, chills, and weight loss, Eyes: Negative for injury, snw pain, redness, and discharge, ENT: Negative for injury, pain, and discharge, Neck: Negative for injury, pain, and swelling, Cardiovascular: Negative for chest pain, palpitations, and edema, Respiratory: Negative for shortness of breath, cough, wheezing, and pleuritic chest pain, Back: Negative for injury and pain, MS/Extremity: Negative for injury and deformity, Skin: Negative for injury, rash, and discoloration, Neuro: Negative for headache, weakness, numbness, tingling, and seizure. 10:34 Abdomen/GI: Positive for abdominal pain, nausea. 10:34 : Positive for pelvic pain, vaginal bleeding, vaginal discharge. Exam: 09:59 Head/Face: Normocephalic, atraumatic. Eyes: Pupils equal round and reactive to light, snw extra-ocular motions intact. Lids and lashes normal. Conjunctiva and sclera are non-icteric and not injected. Cornea within normal limits. Periorbital areas with no swelling, redness, or edema. ENT: Nares patent. No nasal discharge, no septal abnormalities noted. Tympanic membranes are normal and external auditory canals are clear. Oropharynx with no redness, swelling, or masses, exudates, or evidence of obstruction, uvula midline. Mucous membranes moist. Neck: Trachea midline, no thyromegaly or masses palpated, and no cervical lymphadenopathy. Supple, full range of motion without nuchal rigidity, or vertebral point tenderness. No Meningismus. Chest/axilla: Normal chest wall appearance and motion. Nontender with no deformity. No lesions are appreciated. Cardiovascular: Regular rate and rhythm with a normal S1 and S2. No gallops, murmurs, or rubs. Normal PMI, no JVD. No pulse deficits. Respiratory: Lungs have equal breath sounds bilaterally, clear to auscultation and percussion. No rales, rhonchi or wheezes noted. No increased work of breathing, no retractions or nasal flaring. Back: No spinal tenderness. No costovertebral tenderness. Full range of motion. 09:59 MS/ Extremity: Pulses equal, no cyanosis. Neurovascular intact. Full, normal range of motion. Neuro: Awake and alert, GCS 15, oriented to person, place, time, and situation. Cranial nerves II-XII grossly intact. Motor strength 5/5 in all extremities. Sensory grossly intact. Cerebellar exam normal. Normal gait. Psych: Awake, alert, with orientation to person, place and time. Behavior, mood, and affect are within normal limits. 09:59 Female : Normal external genitalia with creamy marcano discharge, cultured, straight cath performed, urine appearance is clear, inguinal area with centrally clearing rash 09:59 Constitutional: The patient appears alert, awake, anxious, obese, in obvious pain, uncomfortable. 09:59 Abdomen/GI: Inspection: obese Bowel sounds: normal, Palpation: severe abdominal tenderness, in the suprapubic area, right lower quadrant and left lower quadrant. Vital Signs: 09:11 BP 165 / 86; Pulse 73; Resp 18 S; Temp 98.3(O); Pulse Ox 98% on R/A; Weight 108.86 kg; iw Height 5 ft. 10 in. (177.80 cm); Pain 10/10; 10:30 BP 140 / 73; Pulse 73; Resp 16; Pulse Ox 100% on R/A; ag 11:30 BP 132 / 65; Pulse 67; Resp 16; Pulse Ox 97% ; ag 12:30 BP 149 / 85; Pulse 71; Resp 18; Pulse Ox 96% ; ag 13:30 BP 142 / 75; Pulse 75; Resp 18; Pulse Ox 97% on R/A; Pain 2/10; em 09:11 Body Mass Index 34.44 (108.86 kg, 177.80 cm) iw MDM: 09:07 Patient medically screened. snw 10:35 Data reviewed: vital signs, nurses notes. Data interpreted: Pulse oximetry: on room air snw is 98 %. Interpretation: normal. Counseling: I had a detailed discussion with the patient and/or guardian regarding: the historical points, exam findings, and any diagnostic results supporting the discharge/admit diagnosis, the presence of at least one elevated blood pressure reading (>120/80) during this emergency department visit, lab results, radiology results, the need for further work-up and treatment in the hospital. Physician consultation: Arpit Jaramillo DO was called at 10:36, was contacted at 10:36, regarding admission, to the medical/surgical unit. patient's condition, and will see patient in ED, shortly. 05/02 09:08 Order name: Urine Culture snw 05/02 09:08 Order name: Basic Metabolic Panel; Complete Time: 10:38 snw 05/02 09:08 Order name: CBC with Diff; Complete Time: 10:29 snw 05/02 09:08 Order name: Creatinine for Radiology; Complete Time: 10:29 snw 05/02 09:08 Order name: Hepatic Function; Complete Time: 10:38 snw 05/02 09:08 Order name: Lipase; Complete Time: 10:38 snw 05/02 09:08 Order name: Urine Microscopic Only; Complete Time: 10:16 snw 05/02 09:08 Order name: Blood Culture* snw 05/02 09:27 Order name: Vag/ure Culture snw 05/02 09:41 Order name: Urine Dipstick--Ancillary (enter results) bd 05/02 09:42 Order name: Urine Dipstick-Ancillary; Complete Time: 10:16 EDMS 05/02 10:47 Order name: GC (Lennox/Chl) Probe URINE EDMS 05/02 10:51 Order name: Basic Metabolic Panel EDMS 05/02 10:51 Order name: Basic Metabolic Panel EDMS 05/02 09:09 Order name: CT Stone Protocol; Complete Time: 10:08 snw 05/02 10:51 Order name: Basic Metabolic Panel EDMS 05/02 10:51 Order name: Basic Metabolic Panel EDMS 05/02 10:51 Order name: CBC with Automated Diff EDMS 05/02 10:51 Order name: CBC with Automated Diff EDMS 05/02 10:51 Order name: CBC with Automated Diff EDMS 05/02 10:51 Order name: CBC with Automated Diff EDMS 05/02 10:51 Order name: Magnesium EDMS 05/02 10:51 Order name: Magnesium EDMS 05/02 10:51 Order name: Magnesium EDMS 05/02 10:51 Order name: Magnesium EDMS 05/02 10:52 Order name: Urinalysis EDMS 05/02 09:08 Order name: Cath; Complete Time: 09:38 snw 05/02 09:08 Order name: IV Saline Lock; Complete Time: 10:09 snw 05/02 09:08 Order name: Labs collected and sent; Complete Time: 10:09 snw 05/02 09:08 Order name: Urine Dipstick-Ancillary (obtain specimen); Complete Time: 09:37 snw 05/02 10:51 Order name: Clear Liquid EDMS Administered Medications: 10:10 Drug: fentaNYL (PF) 50 mcg Route: IVP; Site: left forearm; iw 10:48 Follow up: Response: No adverse reaction; Pain is decreased em 10:11 Drug: Zofran 4 mg Route: IVP; Site: left forearm; iw 10:49 Follow up: Response: No adverse reaction; Nausea is decreased em 10:47 Drug: Ciprofloxacin 400 mg Volume: 200 ml; Route: IVPB; Infused Over: 60 mins; Site: em left forearm; 12:00 Follow up: IV Status: Completed infusion; IV Intake: 200ml em 10:48 Drug: Flagyl 500 mg Volume: 100 ml; Route: IVPB; Rate: 200 ml/hr; Infused Over: 30 em mins; Site: left forearm; 12:40 Follow up: IV Status: Completed infusion; IV Intake: 100ml em Disposition: 05/02/18 10:38 Hospitalization ordered by Arpit Jaramillo for Observation. Preliminary diagnosis is Diverticulitis of intestine, part unspecified, without perforation or abscess with bleeding - sigmoid. - Bed requested for Telemetry/MedSurg (observation). - Status is Observation. em - Condition is Stable. - Problem is an acute exacerbation. - Symptoms have worsened. UTI on Admission? No Addendum: 05/04/2018 08:40 Co-signature as Attending Physician, Mike Rios MD I agree with the assessment and c cody plan of care. Signatures: Dispatcher [employer] Ivon Adrian RN RN dw Anderson, Corey, MD MD cha Therrien, Shelly, EXHAUST EMISSIONS AUTOMOTIVE TECHNICIAN-C EXHAUST EMISSIONS AUTOMOTIVE TECHNICIAN-Csnw Alan Funez, SOCIAL WORKER PALLIATIVE CARE SOCIAL WORKER PALLIATIVE CARE em Janny Haile RN RN iw Corrections: (The following items were deleted from the chart) 05/02 10:35 10:01 Constitutional: Positive for snw snw 12:34 10:38 Hospitalization Ordered by Arpit Jaramillo DO for Observation. Preliminary dw diagnosis is Diverticulitis of intestine, part unspecified, without perforation or abscess with bleeding - sigmoid. Bed requested for Telemetry/MedSurg (observation). Status is Observation. Condition is Stable. Problem is an acute exacerbation. Symptoms have worsened. UTI on Admission? No. snw 14:20 12:34 05/02/2018 10:38 Hospitalization Ordered by Arpit Jaramillo DO for Observation. em Preliminary diagnosis is Diverticulitis of intestine, part unspecified, without perforation or abscess with bleeding - sigmoid. Bed requested for Telemetry/MedSurg (observation). Status is Observation. Condition is Stable. Problem is an acute exacerbation. Symptoms have worsened. UTI on Admission? No. dw
--- NOTE | 2018-05-02 10:38 | ER ---
Nurse's Notes [facility] Name: Sonia Miller Age: 52 yrs Sex: Female : 1965 Arrival Date: 05/02/2018 Time: 08:59 Bed External Waiting Private MD: Diagnosis: Diverticulitis of intestine, part unspecified, without perforation or abscess with bleeding-sigmoid Presentation: 05/02 09:03 Presenting complaint: Patient states: has had lower abd pain, pelvic pain X 3 days, c/o iw cramping to lower back, feels like labor contractions, also has vaginal bleeding X 3 days, brown, spotting, c/o nausea, no vomiting or diarrhea, also has pain with urination, felt like she had fever/chills last night,pain 10/10. Transition of care: patient was not received from another setting of care. Onset of symptoms was April 29, 2018. Risk Assessment: Do you want to hurt yourself or someone else? Patient reports no desire to harm self or others. Initial Sepsis Screen: Does the patient meet any 2 criteria? No. Patient's initial sepsis screen is negative. Does the patient have a suspected source of infection? No. Patient's initial sepsis screen is negative. Care prior to arrival: None. 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 - Social history:: Smoking status: Patient/guardian denies using tobacco. - Ebola Screening: : No symptoms or risks identified at this time. Screenin:20 Abuse screen: Denies threats or abuse. Nutritional screening: No deficits noted. em Tuberculosis screening: No symptoms or risk factors identified. Fall Risk None identified. Assessment: 09:15 General: Appears in no apparent distress. uncomfortable, Behavior is cooperative. em General: Denies fever. Pain: Complains of pain in suprapubic area. Pain: Pain does not radiate. Pain currently is 10 out of 10 on a pain scale. Pain began 2-3 days ago. Neuro: Level of Consciousness is awake, alert, obeys commands, Oriented to person, place, time, situation. Cardiovascular: Capillary refill < 3 seconds Patient's skin is warm and dry. Respiratory: Airway is patent Respiratory effort is even, unlabored, Respiratory pattern is regular, symmetrical. GI: Abdomen is round Bowel sounds present X 4 quads. Abd is soft and non tender X 4 quads. : Reports burning with urination, since 3 days pain in suprapubic area with urination, vaginal bleeding that is brown. EENT: No signs and/or symptoms were reported regarding the EENT system. Derm: Skin is intact, Skin is pink, warm \T\ dry. Musculoskeletal: Range of motion: intact in all extremities. 10:10 Reassessment: Patient appears in no apparent distress at this time. Patient and/or iw family updated on plan of care and expected duration. Pain level reassessed. Patient is alert, oriented x 3, equal unlabored respirations, skin warm/dry/pink. I agree with above assessment by Alan Funez LVN. 11:00 Reassessment: Patient appears in no apparent distress at this time. Patient is alert, em oriented x 3, equal unlabored respirations, skin warm/dry/pink. rates 2/10 Patient denies pain at this time. Patient states symptoms have improved. 12:00 Reassessment: Patient appears in no apparent distress at this time. Patient and/or em family updated on plan of care and expected duration. Pain level reassessed. Patient is alert, oriented x 3, equal unlabored respirations, skin warm/dry/pink. resting comfortably with eyes closed, at bedside Patient states feeling better. 13:00 Reassessment: Patient appears in no apparent distress at this time. Patient and/or em family updated on plan of care and expected duration. Pain level reassessed. Patient is alert, oriented x 3, equal unlabored respirations, skin warm/dry/pink. Patient states feeling better. 13:44 Reassessment: Patient appears in no apparent distress at this time. attempted to call em report, nurse finishing lunch will call back in 10 minutes. Vital Signs: 09:11 BP 165 / 86; Pulse 73; Resp 18 S; Temp 98.3(O); Pulse Ox 98% on R/A; Weight 108.86 kg; iw Height 5 ft. 10 in. (177.80 cm); Pain 10/10; 10:30 BP 140 / 73; Pulse 73; Resp 16; Pulse Ox 100% on R/A; ag 11:30 BP 132 / 65; Pulse 67; Resp 16; Pulse Ox 97% ; ag 12:30 BP 149 / 85; Pulse 71; Resp 18; Pulse Ox 96% ; ag 13:30 BP 142 / 75; Pulse 75; Resp 18; Pulse Ox 97% on R/A; Pain 2/10; em 09:11 Body Mass Index 34.44 (108.86 kg, 177.80 cm) iw ED Course: 08:59 Patient arrived in ED. em 09:06 Triage completed. iw 09:07 [facility]ile[facility] Garcia F[facility]-C [facility] snw 09:07 Mike Rios MD is Attending Physician. snw 09:11 Arm band placed on. iw 09:14 Alan Funez LVN is Primary Nurse. em 09:20 Patient has correct armband on for positive identification. Bed in low position. Call em light in reach. Side rails up X2. Adult w/ patient. 09:32 CT completed. Patient moved to CT via stretcher. Patient moved back from CT. cw1 09:33 CT Stone Protocol In Process Unspecified. EDMS 09:36 Urine collected: straight cath specimen, clear, fady colored, Vaginal culture ag collected. Straight cath inserted, using sterile technique, 16 Fr. Specimen obtained. 09:37 Vag/ure Culture Sent. ag 09:45 Missed attempt(s): 22 gauge in left antecubital area. Bleeding controlled, band aid em applied, catheter tip intact. 09:50 Inserted saline lock: 22 gauge in left forearm, using aseptic technique. Blood em collected. 09:50 Initial lab(s) drawn, by me, sent to lab. First set of blood cultures drawn. em 10:37 Arpit Jaramillo DO is Hospitalizing Provider. snw 11:09 Vag/ure Culture Sent. ag 11:09 Urine Dipstick--Ancillary (enter results) Sent. ag 11:10 Assisted to bathroom. Linen changed. ag 13:41 No provider procedures requiring assistance completed. Patient admitted, IV remains in em place. Administered Medications: 10:10 Drug: fentaNYL (PF) 50 mcg Route: IVP; Site: left forearm; iw 10:48 Follow up: Response: No adverse reaction; Pain is decreased em 10:11 Drug: Zofran 4 mg Route: IVP; Site: left forearm; iw 10:49 Follow up: Response: No adverse reaction; Nausea is decreased em 10:47 Drug: Ciprofloxacin 400 mg Volume: 200 ml; Route: IVPB; Infused Over: 60 mins; Site: em left forearm; 12:00 Follow up: IV Status: Completed infusion; IV Intake: 200ml em 10:48 Drug: Flagyl 500 mg Volume: 100 ml; Route: IVPB; Rate: 200 ml/hr; Infused Over: 30 em mins; Site: left forearm; 12:40 Follow up: IV Status: Completed infusion; IV Intake: 100ml em Intake: 12:00 IV: 200ml; Total: 200ml. em 12:40 IV: 100ml; Total: 300ml. em Outcome: 10:38 Decision to Hospitalize by Provider. snw 13:42 Admitted to Med/surg accompanied by tech, via wheelchair, room 213, with chart, Report em called to EMERALD Alvares 13:42 Condition: good 13:42 Instructed on the need for admit, Demonstrated understanding of instructions. 14:20 Patient left the ED. em Signatures: Dispatcher [employer] EDMS Eileen Garcia, ROASTER SUPERVISOR-C ROASTER SUPERVISOR-Csnw Alan Funez, SILVERWARE BUFFING MACHINE OPERATOR SILVERWARE BUFFING MACHINE OPERATOR em Janny Haile, EMERALD RN Sandy Fontana cw1 Kassidy Talamantes ag
[2018-05-02] MEDS ORDERED: CIPROFLOXACIN 400mg IV 400 MG/200 ML BAG IV ONE (10:42)
[2018-05-02] MEDS ORDERED: METRONIDAZOLE 500mg IVPB 500 MG/100 ML BAG IV ONE (10:42)
[2018-05-02] MEDS ORDERED: FENTANYL CITR 100 MCG/2 ML IV PRN (10:44)
[2018-05-02] MEDS ORDERED: ACETAMINOPHEN 500 MG TAB PO PRN (10:44)
[2018-05-02] MEDS ORDERED: TRAMADOL HCL 50 MG TAB PO PRN (10:44)
--- NOTE | 2018-05-02 10:57 | P.HP ---
Certification for Inpatient Patient admitted to: Observation With expected LOS: <2 Midnights Patient will require the following post-hospital care: None Practitioner: I am a practitioner with admitting privileges, knowledge of patient current condition, hospital course, and medical plan of care. Services: Services provided to patient in accordance with Admission requirements found in Title 42 Section 412.3 of the Code of Federal Regulations Patient History Date of Service: 05/02/18 Primary Care Provider: Dr. Orellana([place], [place]) Reason for admission: Abdominal pain History of Present Illness: 52 yo CF presented to the ER with abdominal pain, nausea. She was seen about one month ago with diverticulitis. She was treated at that time and sent home. She had been doing well until about 3 days ago. She started to have some abdominal pain to the lower abdomen. She rated the pain about a 10/ 10 today. She also reported some nausea. Her appetite has been poor. Some mild blood noted. She also reports some vaginal discharge. No history of STD. She is and monogomous. She has HTN, seizure disorder and has obesity. She has not followed up with her PCP in some time due to her financial status. She has not taken her antiseizure medication in over 3 years. No seizures noted. In the ER she was evaluated. Her WBC was 11.7. UA was unremarkable. CT showed sigmoid diverticulitis. Blood and vaginal cultures obtained. She will be admitted for observation. When I saw her, was at bedside. Pain is controlled. She is not in any distress. 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 She works at a [employer] place. - Family History Father -: Diabetes, Cancer (prostate and pancreatic) Mother -: Cancer (stomach cancer) - Social History Smoking Status: Never smoker Alcohol use: No CD- Drugs: No Caffeine use: Yes Place of Residence: Home Review of Systems General: Weakness, As per HPI Eyes: Unremarkable ENT: Unremarkable Respiratory: Unremarkable Cardiovascular: Unremarkable Gastrointestinal: Nausea, Vomiting, Abdominal Pain, As per HPI Genitourinary: As per HPI Musculoskeletal: Unremarkable Integumentary: Unremarkable Neurological: Unremarkable Lymphatics: Unremarkable Physical Examination - Physical Exam General: Alert, In no apparent distress, Oriented x3, Cooperative HEENT: Atraumatic, Normocephalic, PERRLA, Mucous membr. moist/pink Neck: Supple, No Thyromegaly Respiratory: Clear to auscultation bilaterally Cardiovascular: Normal pulses, Regular rate/rhythm Gastrointestinal: Normal bowel sounds, Soft and benign, Non-distended, No masses , No rebound, No guarding, Tenderness (Mild tenderness to the Left lower quadrant) Musculoskeletal: No contractures, No erythema, No tenderness, No warmth Integumentary: No tenderness/swelling, No erythema, No warmth, No cyanosis Neurological: Normal speech, Normal strength at 5/5 x4 extr, Normal tone, Normal affect Lymphatics: No axilla or inguinal lymphadenopathy External genitalia: Other (Labia appears normal. No blood noted. Some exudate noted from the vagina) - Studies Laboratory Data (last 24 hrs) 05/02/18 09:50: Creatinine 0.62 05/02/18 09:50: WBC 11.7 H, Hgb 11.4 L, Hct 33.5 L, Plt Count 273 05/02/18 09:50: Sodium 137, Potassium 3.6, BUN 12, Creatinine 0.67, Glucose 97, Total Bilirubin 0.6, AST 22, ALT 19, Alkaline Phosphatase 96, Lipase 16 L Assessment and Plan - Problems (Diagnosis) (1) Vaginal discharge Current Visit: Yes Status: Acute Plan: Will send for cultures. Assess for STD. Will continue with IV antibiotics. Will nee COMMUNICATIONS SUPERINTENDENT exam with COMMUNICATIONS SUPERINTENDENT as outpatient to further assess. (2) Obesity Current Visit: Yes Status: Chronic Plan: Will address lifestyle modifications. (3) Acute diverticulitis Onset Date: 03/25/18 Current Visit: No Status: Acute Plan: Will start Cipro and Flagyl IV. Will start with clear liquid and advance as tolerated. Will monitor closely. Will need colonoscopy in 4-6 weeks with GI. Will educate on diet. Anticipate home tomorrow. Continue with IV fluids. (4) GERD (gastroesophageal reflux disease) Onset Date: 03/25/18 Current Visit: No Status: Chronic Plan: Will continue with PPI Qualifiers: Esophagitis presence: without esophagitis Qualified Code(s): K21.9 - Gastro -esophageal reflux disease without esophagitis (5) HTN (hypertension) Onset Date: 03/25/18 Current Visit: No Status: Chronic Plan: Will restart home medication. Qualifiers: Hypertension type: essential hypertension Qualified Code(s): I10 - Essential (primary) hypertension (6) Seizure disorder Onset Date: 03/25/18 Current Visit: No Status: Chronic Plan: She reports history of seizures but does not take medication due to cost. Previously on Topamax. Will verify medication. Will monitor. (7) Anemia Current Visit: Yes Status: Chronic Plan: Likely chronic but maybe related to diverticulitis. Will monitor. Will check iron and B12. Qualifiers: Anemia type: other cause Discharge Plan: Home Plan to discharge in: 24 Hours - Advance Directives Does patient have a Living Will: No Does patient have a Durable POA for Healthcare: No - Code Status/Comfort Care Code Status Assessed: Yes Time Spent Managing Pts Care (In Minutes): 55
[2018-05-02] MEDS: NA CHLORIDE 0.9% 1,000 ML IV SCH ×2 (14:56→21:15)
[2018-05-02] MEDS: ENOXAPARIN 40 MG/0.4 ML SQ SCH (14:57)
[2018-05-02] MEDS: HYDROCODONE/APAP 7.5/325 MG TAB PO PRN (14:59)
[2018-05-02 17:03] VITALS: BMI 34.4
[2018-05-02] MEDS: METRONIDAZOLE 500mg IVPB 500 MG/100 ML BAG IV SCH (17:29)
[2018-05-02] MEDS: ONDANSETRON 4 MG/2 ML VIAL IV PRN (17:37)
[2018-05-02] MEDS: CIPROFLOXACIN 400mg IV 400 MG/200 ML BAG IV SCH (21:15)
[2018-05-03] MEDS: METRONIDAZOLE 500mg IVPB 500 MG/100 ML BAG IV SCH ×3 (00:19→16:32)
[2018-05-03] MEDS: ONDANSETRON 4 MG/2 ML VIAL IV PRN ×3 (00:20→15:18)
[2018-05-03 04:25] LABS: Absolute Lymphocytes (CBC) 1.9 K/uL (0.7-4.9); Absolute Neutrophil 7.9 K/uL (1.8-8.0); Basophils % 0.6 % (0-1.3); Eosinophils % 1.2 % (0-4.4); Hematocrit 31.1 % (36.0-45.0); Lymphocytes % 17.6 % (15.3-44.8); MCH 29.9 pg (27.0-35.0); MCV 87.4 fL (80-100); MPV 9.2 fL (7.6-11.3); Monocytes % 8.9 % (3.3-12.3); RBC Red Blood Cell Count 3.57 M/uL (3.86-4.86)
[2018-05-03 04:40] LABS: BUN Blood Urea Nitrogen 12 mg/dL (6-20); Bicarbonate 28 mEq/L (21-31); Glucose Level 98 mg/dL (65-120); Magnesium 1.8 mg/dL (1.8-2.5); Potassium 3.6 mEq/L (3.6-5.0); Sodium Level 138 mEq/L (135-145)
[2018-05-03] MEDS: PANTOPRAZOLE 40MG TABLET PO SCH (05:55)
[2018-05-03] MEDS: NA CHLORIDE 0.9% 1,000 ML IV SCH ×2 (06:26→16:26)
[2018-05-03] MEDS ORDERED: MAGNESIUM SULFATE 1 gm IVPB 1 GM/100 ML BAG IV ONE (07:00)
[2018-05-03] MEDS ORDERED: KCL 20 MEQ/100 mL IVPB 20 MEQ/100 ML BAG IV SCH (08:00)
--- NOTE | 2018-05-03 08:09 | P.PN ---
Subjective Date of Service: 05/03/18 Primary Care Provider: Dr. Orellana([place], [place]) Chief Complaint: Abdominal pain Subjective: Improving (Patient is slowly improving. Pain improved.) Physical Examination - Vital Signs Temperature: 99.6 F Blood Pressure: 161/70 Pulse: 82 Respirations: 16 Pulse Ox (%): 96 - Physical Exam General: Alert, In no apparent distress, Oriented x3, Cooperative HEENT: Atraumatic, Mucous membr. moist/pink Neck: Supple, No Thyromegaly Respiratory: Clear to auscultation bilaterally, Normal air movement Cardiovascular: Normal pulses, Regular rate/rhythm Gastrointestinal: Normal bowel sounds, Soft and benign, Non-distended, No masses , No rebound, No guarding, Tenderness (Less pain to the left lower quadrant) Musculoskeletal: No erythema, No tenderness, No warmth Integumentary: No tenderness/swelling, No erythema, No warmth, No cyanosis Neurological: Normal speech, Normal strength at 5/5 x4 extr, Normal tone, Normal affect - Studies Laboratory Data (last 24 hrs) 05/02/18 09:50: Creatinine 0.62 05/02/18 09:50: WBC 11.7 H, Hgb 11.4 L, Hct 33.5 L, Plt Count 273 05/02/18 09:50: Sodium 137, Potassium 3.6, BUN 12, Creatinine 0.67, Glucose 97, Total Bilirubin 0.6, AST 22, ALT 19, Alkaline Phosphatase 96, Lipase 16 L Medications List Reviewed: Yes Assessment & Plan - Problems (Diagnosis) (1) Vaginal discharge Current Visit: Yes Status: Acute Plan: Urine cultures for GC chlamydia pending. Will continue IV antibiotic therapy. Will advance diet as tolerated. If the patient tolerates diet then will consider discharge either later today or tomorrow. Patient will need full gynecological exam with gynecology as an outpatient to further evaluate. (2) Obesity Current Visit: Yes Status: Chronic Plan: Will address lifestyle modifications. Qualifiers: Obesity type: due to excess calories Obesity classification: adult class 1 (BMI 30 - 34.9) Serious obesity comorbidity presence: with serious comorbidity Body mass index: BMI 34.0-34.9 Qualified Code(s): E66.09 - Other obesity due to excess calories; Z68.34 - Body mass index (BMI) 34.0-34.9, adult (3) Acute diverticulitis Onset Date: 03/25/18 Current Visit: No Status: Acute Plan: Will continue with IV Cipro and Flagyl. Will advance dialysis tolerated. If the patient tolerates her diet and significantly improves then will plan for discharge later today or tomorrow. She will need colonoscopy in 4-6 weeks with GI. Education on diet and diverticulitis addressed in detail. (4) GERD (gastroesophageal reflux disease) Onset Date: 03/25/18 Current Visit: No Status: Chronic Plan: Will continue with PPI Qualifiers: Esophagitis presence: without esophagitis Qualified Code(s): K21.9 - Gastro -esophageal reflux disease without esophagitis (5) HTN (hypertension) Onset Date: 03/25/18 Current Visit: No Status: Chronic Plan: Will adjust medication for better control. Qualifiers: Hypertension type: essential hypertension Qualified Code(s): I10 - Essential (primary) hypertension (6) Seizure disorder Onset Date: 03/25/18 Current Visit: No Status: Chronic Plan: She reports history of seizures but does not take medication due to cost. Previously on Topamax. Will verify medication. Will monitor. Likely no need for medication. (7) Anemia Current Visit: Yes Status: Chronic Plan: Likely chronic but maybe related to diverticulitis. Will monitor. Will check iron and B12. Qualifiers: Anemia type: other cause Discharge Plan: Home Plan to discharge in: 24 Hours Time Spent Managing Pts Care (In Minutes): 55
[2018-05-03] MEDS ORDERED: LOSARTAN POTASSIUM 50 MG TABLET PO SCH (09:00)
[2018-05-03] MEDS: CIPROFLOXACIN 400mg IV 400 MG/200 ML BAG IV SCH ×2 (09:11→21:11)
[2018-05-03] MEDS: LOSARTAN POTASSIUM 50 MG TABLET PO SCH (09:12)
[2018-05-03] MEDS: ENOXAPARIN 40 MG/0.4 ML SQ SCH (09:12)
[2018-05-03] MEDS: HYDROCODONE/APAP 7.5/325 MG TAB PO PRN (10:29)
[2018-05-03] MEDS ORDERED: POTASSIUM 25 MEQ EFFERV TAB PO ONE (11:00)
[2018-05-03] MEDS ORDERED: METOCLOPRAMIDE 10 MG/2mL INJ IV PRN (15:47)
[2018-05-04] MEDS: METRONIDAZOLE 500mg IVPB 500 MG/100 ML BAG IV SCH ×2 (00:05→09:01)
[2018-05-04] MEDS: NA CHLORIDE 0.9% 1,000 ML IV SCH ×2 (02:25→13:00)
[2018-05-04 03:05] LABS: Ferritin 127.5 ng/ml (11.0-306.8)
[2018-05-04 05:19] LABS: Absolute Lymphocytes (CBC) 1.9 K/uL (0.7-4.9); Absolute Monocytes 0.7 K/uL (0.1-1.3); Absolute Neutrophil 5.4 K/uL (1.8-8.0); Basophils % 0.6 % (0-1.3); Eosinophils % 2.1 % (0-4.4); Hematocrit 31.8 % (36.0-45.0); Lymphocytes % 23.1 % (15.3-44.8); MCH 29.8 pg (27.0-35.0); MCV 87.3 fL (80-100); MPV 9.5 fL (7.6-11.3); RBC Red Blood Cell Count 3.64 M/uL (3.86-4.86)
[2018-05-04 05:41] LABS: Magnesium 1.9 mg/dL (1.8-2.5); Potassium 3.3 mEq/L (3.6-5.0)
[2018-05-04] MEDS: PANTOPRAZOLE 40MG TABLET PO SCH (05:54)
[2018-05-04] MEDS: KCL 20 MEQ/100 mL IVPB 20 MEQ/100 ML BAG IV SCH ×2 (06:17→09:01)
[2018-05-04] MEDS ORDERED: hydroCHLOROthiazide 12.5 MG CAP PO SCH (09:00)
[2018-05-04] MEDS: LOSARTAN POTASSIUM 50 MG TABLET PO SCH (09:01)
[2018-05-04] MEDS: ENOXAPARIN 40 MG/0.4 ML SQ SCH (09:01)
[2018-05-04] MEDS: CIPROFLOXACIN 400mg IV 400 MG/200 ML BAG IV SCH (09:01)
[2018-05-04 11:51] VITALS: O2SAT 99
[2018-05-04] MEDS ORDERED: HYDRALAZINE HCL 20 MG/ML VIAL IV PRN (12:30)
--- NOTE | 2018-05-04 13:38 | DS ---
Date of Discharge: 05/04/2018 Admitting Diagnoses: 1. Acute diverticulitis. 2. Vaginal discharge. 3. Obesity, BMI 34. 4. Gastroesophageal reflux disease. 5. Essential hypertension. 6. Seizure disorder. 7. Anemia. Discharge Diagnoses: 1. Acute diverticulitis. Will complete course of Cipro and Flagyl. The patient will need colonoscopy in 4-6 weeks after diverticulitis has settled down. 2. Vaginal discharge. Culture for GC, Chlamydia pending. 3. Obesity, BMI 34. 4. Gastroesophageal reflux disease. 5. Essential hypertension. 6. Seizure disorder. 7. Anemia. Hospital Course: The patient is a 52-year-old female, who came into the hospital for abdominal pain, was found to have acute diverticulitis. The patient was started on IV antibiotics and IV fluids. Blood cultures were obtained, which were negative. Urine culture was also negative. The patient did have some vaginal discharge, and culture and sensitivity were done, which showed mixed cecilio. The patient's white count corrected. She was doing well. Her pain resolved. She was able to tolerate a diet. She did have some mild hypokalemia, which was replaced. The patient was then eating and drinking well , able to ambulate well, and therefore was cleared for discharge. The patient to follow up with GI to have colonoscopy in 4-6 weeks. Educated on diet regarding diverticulitis. The patient unable to take her medications for hypertension and seizure due to cost; however, she has not had any seizures for the past 3 years. We will continue with seizure precautions. The patient also needs full gynecological exam with MAGICIAN/ILLUSIONIST as an outpatient. The patient currently covered with antibiotic therapy. We will follow up on GC serology. Counseled on her obesity as well. The patient states that she could not afford her medications. She will be switched over to HCTZ, which is on the [facility] plan. The patient was then discharged home in a stable condition. Activity: Seizure precautions. No driving, swimming, unattended heights. Diet: Diverticular diet. Followup: Follow up with PCP in 2-3 days. Follow up with GI in 2 weeks to have a colonoscopy scheduled in the next 4-6 peaks. Continue Protonix daily. Repeat CBC and CMP in 1-2 weeks. Physical Examination: General: Awake, alert, oriented, no acute distress. CV: S1, S2. No murmurs. Respiratory: Moving air well bilaterally. Abdomen: Soft, nontender, and nondistended. Positive bowel sounds. Extremities: No clubbing, cyanosis, edema. Neuro: Nonfocal. SA/MODL Voice ID: [id number] Report ID: [id number] [facility]
[2018-05-04 14:48] VITALS: BP 189/89
[2018-05-04] MEDS ORDERED: cloNIDine HCl 0.1 MG TAB PO ONE (15:00)
[2018-05-04 15:07] VITALS: TEMP 99
[2018-05-05 15:42] LABS: C.trachomatis RNA,TMA Not Detected (Not Detected)
== END 2018-05-04 17:25 | disposition home or self-care (01) ==
LOC: ER 08:56 → ERHOLD 10:45 → 2ND 14:04
PROVIDERS: ADMIT Family Medicine; ATTEND Family Medicine
DX: K57.92 Diverticulitis of intestine, part unspecified, without perforation or abscess without bleeding (principal); N89.8 Other specified noninflammatory disorders of vagina; E66.9 Obesity, unspecified; Z68.34 Body mass index [BMI] 34.0-34.9, adult; K21.9 Gastro-esophageal reflux disease without esophagitis; I10 Essential (primary) hypertension; G40.909 Epilepsy, unspecified, not intractable, without status epilepticus; D64.9 Anemia, unspecified; E87.6 Hypokalemia
CPT/HCPCS: 36415; 51702; 74176; 76377; 80048; 80076; 81003; 81015; 82607; 82728; 83540; 83690; 83735; 84132; 84466; 85025; 87040; 87070; 87077; 87086; 87088; 87186; 87490; 87590; 96365; 96375; 99285; G0378; J0360; J0744; J1650; J2405; J2765; J3010; J3475; J7030

== ENCOUNTER 2018-12-18 11:07 | Emergency (ER) | payer OTHER, SELFPAY ==
--- OUTSIDE RECORDS SUMMARY | 2018-12-18 11:09 | XMS REPORT ---
:1965 [facility] Address [address] [place] [address] Dr. Alvarez [address] [place] [id number] Care Team Providers Name Role Phone Unavailable Unavailable Unavailable Payers Payer Name Policy Type Policy Number Effective Date Expiration Date Problems This patient has no known problems. Allergies, Adverse Reactions, Alerts This patient has no known allergies or adverse reactions. Medications This patient has no known medications.
--- NOTE | 2018-12-18 12:23 | EDPHYS ---
Physician Documentation [facility] Name: Sonia Miller Age: 53 yrs Sex: Female : 1965 Arrival Date: 12/18/2018 Time: 11:10 Bed 25 Private MD: ED Physician Tejinder Bryant HPI: 12/18 12:20 This 53 yrs old Female presents to ER via Ambulatory with complaints of Sinus ma2 Congestion. 12:20 The patient or guardian reports cough. Onset: The symptoms/episode began/occurred ma2 gradually, 2 day(s) ago. Severity of symptoms: At their worst the symptoms were moderate, in the emergency department the symptoms are unchanged. Associated signs and symptoms: Pertinent negatives: ear ache, rhinorrhea, vomiting. The patient has experienced similar episodes in the past. 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 tw2 Historical: - Allergies: 11:15 injectable dye (Anaphylaxis); sv 11:15 Iodinated Contrast Media - IV Dye; sv 11:15 Phenergan (Vomiting, Respiratory distress); sv - Home Meds: 12:36 losartan 25 mg Oral tab 1 tab once daily [Active]; aspirin 81 mg Oral chew 1 tab once tw2 daily [Active]; Ranitidine Oral [Active]; - PMHx: 11:15 GERD; Hypertension; Seizures; trachiostomys for bleach exposure and for anaphlaxis and sv for seizures; - PSHx: 11:15 Hysterectomy; tumor removed from R side of face; Tubal ligation; sv - Immunization history:: Flu vaccine is not up to date. - Social history:: Smoking status: Patient/guardian denies using tobacco, Patient/guardian denies using alcohol, street drugs, The patient lives with family. - Ebola Screening: : No symptoms or risks identified at this time. - Family history:: not pertinent. ROS: 12:20 Constitutional: Negative for fever, chills, and weight loss, Eyes: Negative for injury, ma2 pain, redness, and discharge, Cardiovascular: Negative for chest pain, palpitations, and edema, Back: Negative for injury and pain. 12:20 ENT: Positive for nasal discharge, sinus congestion, sinus pain, Negative for drainage from ear(s), tinnitus, difficulty handling secretions. 12:20 All other systems are negative. Exam: 12:20 Constitutional: This is a well developed, well nourished patient who is awake, alert, ma2 and in no acute distress. Head/Face: Normocephalic, atraumatic. Chest/axilla: Normal chest wall appearance and motion. Nontender with no deformity. No lesions are appreciated. Cardiovascular: Regular rate and rhythm with a normal S1 and S2. No gallops, murmurs, or rubs. Normal PMI, no JVD. No pulse deficits. Respiratory: Lungs have equal breath sounds bilaterally, clear to auscultation and percussion. No rales, rhonchi or wheezes noted. No increased work of breathing, no retractions or nasal flaring. Abdomen/GI: Soft, non-tender, with normal bowel sounds. No distension or tympany. No guarding or rebound. No evidence of tenderness throughout. Skin: Warm, dry with normal turgor. Normal color with no rashes, no lesions, and no evidence of cellulitis. MS/ Extremity: Pulses equal, no cyanosis. Neurovascular intact. Full, normal range of motion. Neuro: Awake and alert, GCS 15, oriented to person, place, time, and situation. Cranial nerves II-XII grossly intact. Motor strength 5/5 in all extremities. Sensory grossly intact. Cerebellar exam normal. Normal gait. 12:20 ENT: Posterior pharynx: Airway: normal, swelling, is not appreciated, erythema, that is moderate. Vital Signs: 11:15 BP 138 / 95; Pulse 65; Resp 16; Temp 97.5(O); Pulse Ox 98% ; Weight 112.49 kg; Height 5 sv ft. 10 in. (177.80 cm); Pain 5/10; 11:15 Body Mass Index 35.58 (112.49 kg, 177.80 cm) sv MDM: 12:03 Patient medically screened. ma2 12:20 Differential Diagnosis: Bronchitis Upper Respiratory Infection Sinusitis Pharyngitis. ma2 Data reviewed: vital signs, nurses notes. Counseling: I had a detailed discussion with the patient and/or guardian regarding: the historical points, exam findings, and any diagnostic results supporting the discharge/admit diagnosis, the presence of at least one elevated blood pressure reading (>120/80) during this emergency department visit, the need for outpatient follow up. Administered Medications: No medications were administered Disposition: 12/18/18 12:22 Discharged to Home. Impression: Acute upper respiratory infection, unspecified. - Condition is Fair. - Discharge Instructions: Upper Respiratory Infection, Adult, Form - Return To Work. - Prescriptions for Tylenol- Codeine #3 300-30 mg Oral Tablet - take 2 tablet by ORAL route every 6 hours As needed; 30 tablet. Zithromax Z- Omar 250 mg Oral Tablet - take 1 tablet by ORAL route as directed for 5 days Day 1 - take two (2) tablets one time. Day 2, 3, 4 , 5 take one (1) tablet once daily.; 6 tablet. Medrol (Omar) 4 mg Oral Tablets, Dose Pack - take 1 tablet by ORAL route as directed - follow package instructions; 1 packet. - Work release form, Medication Reconciliation Form, Thank You Letter, Antibiotic Education, Prescription Opioid Use form. - Follow up: Private Physician; When: Today; Reason: Continuance of care. Signatures: Iram Houser RN RN Pooja Smith RN RN tw2 Tejinder Bryant MD MD ma2 Corrections: (The following items were deleted from the chart) 12:28 12:22 12/18/2018 12:22 Discharged to Home. Impression: Acute upper respiratory tw2 infection, unspecified. Condition is Fair. Forms are Work release form, Medication Reconciliation Form, Thank You Letter, Antibiotic Education, Prescription Opioid Use. Follow up: Private Physician; When: Today; Reason: Continuance of care. ma2
--- NOTE | 2018-12-18 12:23 | ER ---
Nurse's Notes [facility] Name: Sonia Miller Age: 53 yrs Sex: Female : 1965 Arrival Date: 12/18/2018 Time: 11:10 Bed 25 Private MD: Diagnosis: Acute upper respiratory infection, unspecified Presentation: 12/18 11:14 Presenting complaint: Patient states: fever Tmax 101, sinus pressure x 4 days. sv Transition of care: patient was not received from another setting of care. Onset of symptoms was December 14, 2018. Care prior to arrival: None. 11:14 Method Of Arrival: Ambulatory sv 11:14 Acuity: ROSI 4 sv 12:28 Risk Assessment: Do you want to hurt yourself or someone else? Patient reports no tw2 desire to harm self or others. Initial Sepsis Screen: Does the patient meet any 2 criteria? No. Patient's initial sepsis screen is negative. Does the patient have a suspected source of infection? No. Patient's initial sepsis screen is negative. Triage Assessment: 11:16 General: Appears in no apparent distress. uncomfortable, Behavior is calm, cooperative, sv appropriate for age. Pain: Complains of pain in face Pain currently is 5 out of 10 on a pain scale. Pain began 4 days ago. Neuro: Level of Consciousness is awake, alert, obeys commands, Oriented to person, place, time, situation, Moves all extremities. Full function Gait is steady. Respiratory: Respiratory effort is even, unlabored, Respiratory pattern is regular, symmetrical. 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 tw2 Historical: - Allergies: 11:15 injectable dye (Anaphylaxis); sv 11:15 Iodinated Contrast Media - IV Dye; sv 11:15 Phenergan (Vomiting, Respiratory distress); sv - Home Meds: 12:36 losartan 25 mg Oral tab 1 tab once daily [Active]; aspirin 81 mg Oral chew 1 tab once tw2 daily [Active]; Ranitidine Oral [Active]; - PMHx: 11:15 GERD; Hypertension; Seizures; trachiostomys for bleach exposure and for anaphlaxis and sv for seizures; - PSHx: 11:15 Hysterectomy; tumor removed from R side of face; Tubal ligation; sv - Immunization history:: Flu vaccine is not up to date. - Social history:: Smoking status: Patient/guardian denies using tobacco, Patient/guardian denies using alcohol, street drugs, The patient lives with family. - Ebola Screening: : No symptoms or risks identified at this time. - Family history:: not pertinent. Screenin:13 Abuse screen: Denies threats or abuse. Nutritional screening: No deficits noted. tw2 Tuberculosis screening: No symptoms or risk factors identified. Fall Risk None identified. Assessment: 12:28 General: Appears in no apparent distress. well groomed, Behavior is calm, cooperative, tw2 appropriate for age. Pain: Complains of pain in face. Neuro: Level of Consciousness is awake, alert, obeys commands, Oriented to person, place, time, situation. Cardiovascular: Denies chest pain, shortness of breath, Capillary refill < 3 seconds Patient's skin is warm and dry. Respiratory: Airway is patent Respiratory effort is even, unlabored, Respiratory pattern is regular, symmetrical. GI: No signs and/or symptoms were reported involving the gastrointestinal system. : No signs and/or symptoms were reported regarding the genitourinary system. EENT: Reports nasal congestion nasal discharge. Musculoskeletal: Range of motion: intact in all extremities. Vital Signs: 11:15 BP 138 / 95; Pulse 65; Resp 16; Temp 97.5(O); Pulse Ox 98% ; Weight 112.49 kg; Height 5 sv ft. 10 in. (177.80 cm); Pain 5/10; 11:15 Body Mass Index 35.58 (112.49 kg, 177.80 cm) sv ED Course: 11:10 Patient arrived in ED. as 11:14 Triage completed. sv 11:17 Arm band placed on Patient placed in waiting room, Patient notified of wait time. sv 12:02 Bed in low position. Side rails up X 1. Adult w/ patient. tw2 12:02 No provider procedures requiring assistance completed. tw2 12:03 Tejinder Bryant MD is Attending Physician. ma2 12:05 Pooja Smith, EMERALD is Primary Nurse. tw2 12:28 Patient did not have IV access during this emergency room visit. tw2 Administered Medications: No medications were administered Outcome: 12:22 Discharge ordered by . ma2 12:28 Patient left the ED. tw2 12:28 Discharged to home ambulatory, with significant other. tw2 12:28 Condition: stable 12:28 Discharge instructions given to patient, significant other, Instructed on discharge instructions, follow up and referral plans. no drinking with medication, no driving heavy equipment, medication usage, Demonstrated understanding of instructions, follow-up care, medications, Prescriptions given X 3. Signatures: Iram Houser RN RN sv Martinez, Amelia as Wise, Tara, RN RN tw2 Tejinder Bryant MD MD ma2 Corrections: (The following items were deleted from the chart) 11:17 11:15 Temp 97.5F Oral; 112.49 kg; Height 5 ft. 10 in.; BMI: 35.5; Pain 5/10; shelley rosa
[2018-12-18 12:34] VITALS: BP 138/95; TEMP 97.5; O2SAT 98
== END 2018-12-18 12:28 | disposition home or self-care (01) ==
LOC: ER 11:07
DX: J06.9 Acute upper respiratory infection, unspecified (principal); I10 Essential (primary) hypertension; G40.909 Epilepsy, unspecified, not intractable, without status epilepticus; Z79.82 Long term (current) use of aspirin; Z88.8 Allergy status to other drugs, medicaments and biological substances; Z91.041 Radiographic dye allergy status; Z91.048 Other nonmedicinal substance allergy status
CPT/HCPCS: 99282